=== PATIENT | male | born 1940 | race Asian ===

== ENCOUNTER 2017-04-19 12:01 | Emergency (ER) | payer MEDICARE, OTHER ==
[~2017-04-19] VITALS: Ht 170.2 cm; Wt 75.0 kg
[2017-04-19] MEDS ORDERED: ALBU8HFA IH (12:13)
[2017-04-19] MEDS ORDERED: LISI-661 PO (12:13)
[2017-04-19] MEDS ORDERED: LINA5TAB PO (12:13)
[2017-04-19] MEDS ORDERED: ATEN50TA PO (12:13)
[2017-04-19] MEDS ORDERED: METF500T4 PO (12:13)
[2017-04-19] MEDS ORDERED: DEXAMETHASONE SOD PHOS 4 MG/ML 5 ML VIAL IM ONE (13:00)
[2017-04-19] MEDS ORDERED: ALBUTEROL SULFATE 5 MG/ML 20 ML NEB SOLN [BULK] NEB ONE (13:00)
[2017-04-19 14:30] VITALS: BP 128/82
== END 2017-04-19 14:50 | disposition home or self-care (01) ==
LOC: EMS 12:03
DX: J45.901 Unspecified asthma with (acute) exacerbation (principal); J06.9 Acute upper respiratory infection, unspecified; E11.9 Type 2 diabetes mellitus without complications; I10 Essential (primary) hypertension
CPT/HCPCS: 71020; 82962; 94640; 96372; 99284; J1100